=== PATIENT | female | born 2000 | race Caucasian/White ===

== ENCOUNTER 2018-06-18 20:02 | Outpatient (CLI) | payer OTHER ==
[2018-06-18 22:31] LABS: ADD UMIC NO; UR ASCORBIC ACID 20 mg/dL (NEGATIVE); UR BILIRUBIN (Dip) NEGATIVE (NEGATIVE); UR BLOOD (Dip) NEGATIVE (NEGATIVE); UR CLARITY CLEAR (CLEAR); UR COLOR YELLOW (YELLOW); UR GLUCOSE (Dip) NEGATIVE (NEGATIVE); UR KETONES (Dip) NEGATIVE (NEGATIVE); UR LEUKOCYTE ESTERASE (Dip) NEGATIVE Leu/ul (NEGATIVE); UR NITRITE (Dip) NEGATIVE (NEGATIVE); UR SPECIFIC GRAVITY (Dip) 1.015 (1.003-1.030); UR TOTAL PROTEIN (Dip) NEGATIVE (NEGATIVE); UR UROBILINOGEN (Dip) NEGATIVE (NEGATIVE)
[2018-06-19 00:02] LABS: ADD MAN DIFF? NO
[2018-06-19 00:05] LABS: WHITE BLOOD COUNT 13.7 10^3/ul (4.8-10.8)
[2018-06-19 00:05] LABS: BASOPHIL # 0.1 10^3/ul (0.0-0.1); BASOPHILS % 0.4 % (0.0-2.0); EOSINOPHILS # 0.1 10^3/ul (0.0-0.5); HEMATOCRIT 37.8 % (37.0-47.0); HEMOGLOBIN 12.5 g/dl (12.0-16.0); LYMPHOCYTES # 2.3 10^3/ul (0.8-2.9); LYMPHOCYTES % 16.8 % (18.0-55.0); MEAN CORPUSCULAR HEMOGLOBIN 30.6 pg (29.0-33.0); MEAN CORPUSCULAR HGB CONC 33.1 g/dl (32.0-37.0); MEAN CORPUSCULAR VOLUME 92.4 fl (72.0-104.0); MEAN PLATELET VOLUME 9.6 fl (7.4-10.4); MONOCYTE # 1.4 10^3/ul (0.3-0.9); MONOCYTES % 10.1 % (0.0-13.0); NEUTROPHIL # 9.4 10^3/ul (1.6-7.5); NEUTROPHILS % 69.1 % (30.0-74.0); PLATELET COUNT 296 10^3/UL (140-415); RED BLOOD COUNT 4.09 10^6/ul (4.20-5.40); RED CELL DISTRIBUTION WIDTH 15.2 % (11.5-14.5)
== END 2018-06-19 01:25 | disposition home or self-care (01) ==
LOC: OBT 20:02 → L-D 20:04
DX: O26.893 Other specified pregnancy related conditions, third trimester (principal); Z3A.35 35 weeks gestation of pregnancy; R10.30 Lower abdominal pain, unspecified
CPT/HCPCS: 76818; 81003; 85025; 87086

== ENCOUNTER 2018-07-10 08:04 | Inpatient (IN) | payer OTHER ==
[2018-07-10 08:44] LABS: RUPTURE FETAL MEMBRANES POSITIVE (NEGATIVE)
[2018-07-10] MEDS ORDERED: METHYLERGONOVINE 0.2 MG INJ IM (10:00)
[2018-07-10] MEDS ORDERED: BUTORPHANOL 2 MG INJ IV (10:00)
[2018-07-10] MEDS ORDERED: OXYTOCIN 30 UNITS/LR 500 ML IV ×2 (10:00)
[2018-07-10] MEDS ORDERED: MISOPROSTOL 200 MCG TAB PR (10:00)
[2018-07-10] MEDS ORDERED: CARBOPROST 250 MCG INJ IM (10:00)
[2018-07-10 10:06] LABS: ADD MAN DIFF? NO
[2018-07-10 10:11] LABS: WHITE BLOOD COUNT 16.1 10^3/ul (4.8-10.8)
[2018-07-10 10:11] LABS: BASOPHIL # 0.1 10^3/ul (0.0-0.1); BASOPHILS % 0.5 % (0.0-2.0); EOSINOPHILS # 0.1 10^3/ul (0.0-0.5); EOSINOPHILS % 0.6 % (0.0-7.0); HEMATOCRIT 40.9 % (37.0-47.0); HEMOGLOBIN 13.3 g/dl (12.0-16.0); LYMPHOCYTES # 2.4 10^3/ul (0.8-2.9); MEAN CORPUSCULAR HEMOGLOBIN 30.1 pg (29.0-33.0); MEAN CORPUSCULAR HGB CONC 32.5 g/dl (32.0-37.0); MEAN CORPUSCULAR VOLUME 92.5 fl (72.0-104.0); MEAN PLATELET VOLUME 9.5 fl (7.4-10.4); MONOCYTE # 1.4 10^3/ul (0.3-0.9); MONOCYTES % 8.7 % (0.0-13.0); NEUTROPHIL # 11.8 10^3/ul (1.6-7.5); NEUTROPHILS % 73.5 % (30.0-74.0); PLATELET COUNT 301 10^3/UL (140-415); RED BLOOD COUNT 4.42 10^6/ul (4.20-5.40); RED CELL DISTRIBUTION WIDTH 15.3 % (11.5-14.5)
[2018-07-10] MEDS: LACTATED RINGER'S 1,000 ML IV ×4 (10:26→15:43)
[2018-07-10 10:29] LABS: INR 0.87; PROTIME 11.9 Sec (11.9-14.9); PT RATIO 0.9
[2018-07-10 10:30] LABS: PARTIAL THROMBOPLASTIN TIME 26.1 Sec (23.0-35.0)
[2018-07-10] MEDS ORDERED: ONDANSETRON 4 MG INJ IV (10:30)
[2018-07-10] MEDS ORDERED: HYDROmorphONE 0.5 MG/0.5 ML SYG IV ×2 (10:30)
[2018-07-10] MEDS ORDERED: KETOROLAC 30 MG INJ IV (10:30)
[2018-07-10] MEDS ORDERED: ZOLPIDEM 5 MG TAB PO (10:30)
[2018-07-10] MEDS ORDERED: DIPHENHYDRAMINE 50 MG INJ IV (10:30)
[2018-07-10] MEDS ORDERED: NALOXONE (0.4 MG/ML) INJ IV (10:30)
[2018-07-10] MEDS: OXYTOCIN 30 UNITS/LR 500 ML IV (12:37)
[2018-07-10] MEDS: AMPICILLIN 2 GM/NS (PMX) 100 ML IV (12:37)
[2018-07-10] MEDS: AMPICILLIN 1 GM/NS (PMX) 50 ML IV ×3 (18:06→21:48)
[2018-07-10 18:28] LABS: RAPID PLASMA REAGIN NONREACTIVE (NR)
[2018-07-10] MEDS: FENTAnyl 2MCG/ML-ROPIV 0.2% 100 ML BAG EPI (21:38)
[2018-07-11] MEDS: LACTATED RINGER'S 1,000 ML IV ×3 (00:15→09:08)
[2018-07-11] MEDS: AMPICILLIN 1 GM/NS (PMX) 50 ML IV ×4 (01:46→12:59)
[2018-07-11] MEDS: OXYTOCIN 30 UNITS/LR 500 ML IV ×2 (05:40→14:48)
[2018-07-11] MEDS ORDERED: ROPIVACAINE 0.5 % 30 ML VIAL (07:00)
[2018-07-11] MEDS: FENTAnyl 2MCG/ML-ROPIV 0.2% 100 ML BAG EPI (07:31)
[2018-07-11] MEDS: CELECOXIB 200 MG CAP PO (09:07)
[2018-07-11 11:55] LABS: AMPHETAMINE/METHAMPHETAMINE Negative (NEGATIVE); BARBITURATES Negative (NEGATIVE); BENZODIAZEPINES Negative (NEGATIVE); CANNABINOIDS Negative (NEGATIVE); COCAINE Negative (NEGATIVE); OPIATES Negative (NEGATIVE)
[2018-07-11] MEDS: MINERAL OIL LIGHT 10 ML VIAL TOP (13:55)
[2018-07-11] MEDS: LIDOCAINE 1% (MPF) 30 ML INJ INJ (14:52)
[2018-07-11] MEDS: KETOROLAC 30 MG INJ IV (15:19)
[2018-07-11] MEDS: LACTATED RINGER'S 1,000 ML IV* ×2 (16:37→18:18)
[2018-07-11] MEDS ORDERED: MISOPROSTOL 200 MCG TAB PR (17:00)
[2018-07-11] MEDS ORDERED: METHYLERGONOVINE 0.2 MG INJ IM (17:00)
[2018-07-11] MEDS ORDERED: DIBUCAINE 1% 30 GM OINT TOP (17:00)
[2018-07-11] MEDS ORDERED: OXYTOCIN 30 UNITS/LR 500 ML IV (17:00)
[2018-07-11] MEDS ORDERED: CARBOPROST 250 MCG INJ IM (17:00)
[2018-07-11] MEDS ORDERED: ZOLPIDEM 5 MG TAB PO (17:00)
[2018-07-11] MEDS ORDERED: HYDROCODONE/APAP (5/325) TAB PO (17:00)
[2018-07-11] MEDS: LANOLIN HPA 1 PKT TOP (18:08)
[2018-07-11] MEDS: WITCH HAZEL/GLYCERIN PAD PR (18:08)
[2018-07-11] MEDS: BENZOCAINE 20% 56 ML SPRAY TOP (18:09)
[2018-07-11] MEDS: IBUPROFEN 600 MG TAB PO ×2 (18:15→23:54)
[2018-07-11] MEDS: CEPHALEXIN 500 MG CAP PO ×2 (18:15→23:54)
[2018-07-11] MEDS: MAGNESIUM HYDROXIDE 30ML CUP PO (21:35)
[2018-07-11] MEDS: SENNA/DOCUSATE NA (8.6MG/50MG) TAB PO (21:35)
[2018-07-12] MEDS: HYDROCODONE/APAP (5/325) TAB PO (04:52)
[2018-07-12] MEDS: IBUPROFEN 600 MG TAB PO ×4 (06:08→23:40)
[2018-07-12] MEDS: CEPHALEXIN 500 MG CAP PO ×4 (06:08→23:40)
[2018-07-12 06:48] LABS: WHITE BLOOD COUNT 14.9 10^3/ul (4.8-10.8)
[2018-07-12 06:48] LABS: ABNORMAL IP MESSAGE 1; ADD MAN DIFF? NO; BASOPHIL # 0.1 10^3/ul (0.0-0.1); BASOPHILS % 0.4 % (0.0-2.0); EOSINOPHILS # 0.2 10^3/ul (0.0-0.5); EOSINOPHILS % 1.1 % (0.0-7.0); HEMATOCRIT 34.4 % (37.0-47.0); HEMOGLOBIN 11.4 g/dl (12.0-16.0); LYMPHOCYTES # 2.8 10^3/ul (0.8-2.9); LYMPHOCYTES % 18.8 % (18.0-55.0); MEAN CORPUSCULAR HEMOGLOBIN 30.2 pg (29.0-33.0); MEAN CORPUSCULAR HGB CONC 33.1 g/dl (32.0-37.0); MEAN PLATELET VOLUME 9.3 fl (7.4-10.4); MONOCYTE # 1.6 10^3/ul (0.3-0.9); MONOCYTES % 10.7 % (0.0-13.0); NEUTROPHIL # 10.1 10^3/ul (1.6-7.5); NEUTROPHILS % 68.3 % (30.0-74.0); PLATELET COUNT 246 10^3/UL (140-415); RED BLOOD COUNT 3.78 10^6/ul (4.20-5.40); RED CELL DISTRIBUTION WIDTH 15.4 % (11.5-14.5)
[2018-07-12 06:51] LABS: POSITIVE DIFF @See below
[2018-07-12] MEDS: MAGNESIUM HYDROXIDE 30ML CUP PO ×2 (09:00→21:00)
[2018-07-12] MEDS: LANOLIN HPA 1 PKT TOP (09:26)
[2018-07-12] MEDS: SENNA/DOCUSATE NA (8.6MG/50MG) TAB PO ×2 (09:26→21:00)
[2018-07-12 14:40] LABS: HEPATITIS B SURFACE ANTIGEN NEGATIVE (NEGATIVE)
[2018-07-12] MEDS: WITCH HAZEL/GLYCERIN PAD PR (23:03)
[2018-07-13] MEDS: CEPHALEXIN 500 MG CAP PO ×2 (05:47→11:54)
[2018-07-13] MEDS: IBUPROFEN 600 MG TAB PO ×2 (05:47→11:54)
[2018-07-13 07:49] LABS: ADD MAN DIFF? NO
[2018-07-13 07:55] LABS: BASOPHIL # 0.1 10^3/ul (0.0-0.1); BASOPHILS % 0.6 % (0.0-2.0); EOSINOPHILS # 0.2 10^3/ul (0.0-0.5); EOSINOPHILS % 1.8 % (0.0-7.0); HEMATOCRIT 34.9 % (37.0-47.0); HEMOGLOBIN 11.4 g/dl (12.0-16.0); LYMPHOCYTES # 1.9 10^3/ul (0.8-2.9); LYMPHOCYTES % 18.2 % (18.0-55.0); MEAN CORPUSCULAR HEMOGLOBIN 30.4 pg (29.0-33.0); MEAN CORPUSCULAR HGB CONC 32.7 g/dl (32.0-37.0); MEAN CORPUSCULAR VOLUME 93.1 fl (72.0-104.0); MEAN PLATELET VOLUME 9.6 fl (7.4-10.4); MONOCYTE # 1.1 10^3/ul (0.3-0.9); MONOCYTES % 10.2 % (0.0-13.0); NEUTROPHIL # 7.1 10^3/ul (1.6-7.5); NEUTROPHILS % 67.9 % (30.0-74.0); PLATELET COUNT 261 10^3/UL (140-415); RED BLOOD COUNT 3.75 10^6/ul (4.20-5.40); RED CELL DISTRIBUTION WIDTH 15.5 % (11.5-14.5)
[2018-07-13 07:55] LABS: WHITE BLOOD COUNT 10.4 10^3/ul (4.8-10.8)
[2018-07-13] MEDS: VARICELLA VACCINE LIVE/PF 1,350 UNIT/0.5 ML ML SC* (09:00)
[2018-07-13] MEDS: MEASLES,MUMPS,RUBELLA VACCINE INJ SC* (09:00)
[2018-07-13] MEDS: MAGNESIUM HYDROXIDE 30ML CUP PO (09:31)
[2018-07-13] MEDS: SENNA/DOCUSATE NA (8.6MG/50MG) TAB PO (09:31)
[2018-07-13] MEDS: DIPHTH/TET/ACEL PERTUSS (ADULT) 0.5 ML VIAL IM* (09:52)
[2018-07-13] MEDS: LANOLIN HPA 1 PKT TOP (13:17)
== END 2018-07-13 16:19 | disposition home or self-care (01) | DRG 807 ==
LOC: OBT 08:04 → L-D 08:10 → PP1 07-11 16:28 → OBT 08:23 → L-D 08:23
PROVIDERS: Obstetrics & Gynecology
PROC: 10E0XZZ Delivery of Products of Conception, External Approach (ICD-10-PCS; principal; 2018-07-11)
PROC: 0HQ9XZZ Repair Perineum Skin, External Approach (ICD-10-PCS; 2018-07-11)
DX: O99.824 Streptococcus B carrier state complicating childbirth (principal); Z37.0 Single live birth; O70.0 First degree perineal laceration during delivery; Z3A.38 38 weeks gestation of pregnancy
CPT/HCPCS: 62319; 76815; 76818; 80307; 84112; 85025; 85610; 85730; 86592; 86850; 86900; 86901; 87340; 90716